=== PATIENT | male | born 1975 | race African-American/Black ===

== ENCOUNTER 2019-01-04 04:36 | Inpatient (IN) | payer OTHER ==
[~2019-01-04] VITALS: Ht 200.7 cm; Wt 107.5 kg
[~2019-01-04 04:36] MED LIST: MECLIZINE HCL25 MG PO
--- NOTE | 2019-01-04 04:40 | NUR ---
SE RECIBE PTE ALERTA Y ORIENTADO X3,REFIERE DOLOR EN EL ESTOMAGO ,EPIGASTRIO,ESPALDA ,REFIERE QUE LE ALMEIDA DADO ANTERIORMENTE QUE ES COSTOCONTDRITIS,REFIERE QUE COMIO CHEN HACE TIEMPO QUE NO COMIA SIENTE NAUSEAS.
--- NOTE | 2019-01-04 05:30 | NUR ---
SE RECIBE PACIENTE ALERTA Y ORIENTADO POR STACY ESFERAS EN COMPANIA DE FAMILIAR. SE UBICA A PACIENTE EN GURVINDER Y SE CONECTA A MONITOR CARDIACO. SE ORIENTA A PACIENTE SOBRE PROCEDIMEINTO Y TX, REFIERE ENTENDER. SE EXTRAE MUESTRAS DE LABORATORIO CON MEDIDAS ASEPTICAS Y SE ADMINISTRA MEDICAMENTOS ELIZABETH ORDE MEDICA. SE MANTIENE BAJO OBSERVACION POR CAMBIOS.
--- NOTE | 2019-01-04 07:23 | NUR ---
SE RECIBE PTE EN GURVINDER CON BARANDAS ELEVADAS CON IVFS PATENTE, ALERTA, ORIENTADO POR STACY, ACOMPANADO POR FAMILIAR.CONECTADO A MONITOR CARDIACO SE MANTIENE EN OBSERVACION Y PENDIENTE A REALIZARLE SONOGRAMA ABDOMINAL.
--- NOTE | 2019-01-04 08:23 | NUR ---
SE TRANSFIERE PTE AL DEPARTAMENTO DE RX A REALIZARLE SONOGRAMA ABDOMINAL, ACOMPANADO POR ESCOLTA ,Y FAMILIAR.PTE EN CONDICION ESTABLE.
--- NOTE | 2019-01-04 09:15 | NUR ---
SE RECIBE PTE DE RX EN CONDICION ESTABLE. SE MANTIENE EN OBSERVACION.
--- NOTE | 2019-01-04 10:34 | NUR ---
RE-EVALUADO POR EL SE MANIENE EN OBSERVACION Y PENDIENTE A CONSULTA CON .
== END 2019-01-09 13:18 | disposition home or self-care (01) | DRG 981 ==
LOC: ER 04:36 → SURH 11:03 → SEC-K 11:03 → SURH 11:49
PROVIDERS: ADMIT Surgery
PROC: BW40ZZZ Ultrasonography of Abdomen (ICD-10-PCS; 2019-01-04)
PROC: BF37ZZZ Magnetic Resonance Imaging (MRI) of Pancreas (ICD-10-PCS; 2019-01-05)
PROC: 3E0336Z Introduction of Nutritional Substance into Peripheral Vein, Percutaneous Approach (ICD-10-PCS; 2019-01-06)
PROC: 0J910ZZ Drainage of Face Subcutaneous Tissue and Fascia, Open Approach (ICD-10-PCS; principal; 2019-01-07)
DX: K80.42 Calculus of bile duct with acute cholecystitis without obstruction (principal); K85.10 Biliary acute pancreatitis without necrosis or infection; K80.00 Calculus of gallbladder with acute cholecystitis without obstruction; L02.01 Cutaneous abscess of face